=== PATIENT | male | born 1970 | race Caucasian/White ===

== ENCOUNTER 2017-08-20 17:03 | Emergency (ER) | payer BC ==
[2017-08-20 18:16] VITALS: BP 128/89
--- NOTE | 2017-08-20 18:20 | UC ---
UC General HPI - HPI Summary HPI Summary: pt is c/o sinus congestion and now yellow-green drainage for at least 7 days. he has some cough as well but no sob or fever. he has tx with mucinex and herbs with no relief. he has had similar s/s's and this is c/w a sinus infection. his BS is elevated with this illness as well. - History of Current Complaint Stated Complaint: SINUS PRESSURE, COUGH Time Seen by Provider: 08/20/17 18:08 Hx Obtained From: Patient Onset/Duration: Gradual Onset Timing: Constant Pain Intensity: 0 Associated Signs & Symptoms: Positive: Cough Similar Episode/Dx as: sinusitis - Allergy/Home Medications Allergies/Adverse Reactions: Allergies Allergy/AdvReac Type Severity Reaction Status Date / Time byetta Allergy Intermediate See Comment Uncoded 08/20/17 18:16 PMH/Surg Hx/FS Hx/Imm Hx Endocrine History: Diabetes, Dyslipidemia GI/ History: Gastroesophageal Reflux - Surgical History Surgical History: None - Social History Occupation: Employed Full-time Lives: With Family Alcohol Use: Rare Substance Use Type: None Smoking Status (MU): Never Smoked Tobacco - Immunization History Vaccination Up to Date: Yes Review of Systems Constitutional: Negative Skin: Negative Eyes: Negative ENT: Nasal Discharge, Sinus Congestion Respiratory: Cough Cardiovascular: Negative Gastrointestinal: Negative Genitourinary: Negative Motor: Negative Neurovascular: Negative Musculoskeletal: Negative Neurological: Negative Psychological: Negative All Other Systems Reviewed And Are Negative: Yes Physical Exam Triage Information Reviewed: Yes Appearance: Well-Appearing Vital Signs: Initial Vital Signs Temp 98.4 F 08/20/17 18:07 Pulse 82 08/20/17 18:07 Resp 16 08/20/17 18:07 BP 128/89 08/20/17 18:07 Pulse Ox 98 08/20/17 18:07 Vital Signs Reviewed: Yes Eyes: Positive: Conjunctiva Clear ENT: Positive: Pharynx normal, Nasal congestion, Nasal drainage - yellow, TMs normal Neck: Positive: Supple, Nontender, No Lymphadenopathy Respiratory: Positive: Lungs clear, Normal breath sounds Cardiovascular: Positive: RRR, No Murmur Abdomen Description: Positive: Nontender, No Organomegaly, Soft Bowel Sounds: Positive: Present Musculoskeletal: Positive: ROM Intact Neurological: Positive: Alert Psychological: Positive: Age Appropriate Behavior Skin Exam: Normal Course/Dx - Course Course Of Treatment: non toxic but ill x 1 week or more and worsening s/s's plus NIDDM with elevated BS due to this illness thus will tx with augmentin - Differential Dx - Multi-Symptom Provider Diagnoses: sinusitis Discharge - Discharge Plan Condition: Stable Disposition: HOME Prescriptions: Amoxicillin/Clavulanate TAB* [Augmentin TAB 875*] 875 mg PO BID #20 tab Patient Education Materials: Sinusitis (ED) Forms: *Work Release Referrals: Breann Deras PA [Primary Care Provider] - 5 Days
[2017-08-20] MEDS ORDERED: Amoxicillin/Clavulanate TAB* 875 MG PO ONE (18:23)
== END 2017-08-20 18:36 | disposition home or self-care (01) ==
LOC: UCCORT 17:03
DX: J32.9 Chronic sinusitis, unspecified (principal); Z88.8 Allergy status to other drugs, medicaments and biological substances; E11.9 Type 2 diabetes mellitus without complications
CPT/HCPCS: 99212; A9270-GY; G0463

== ENCOUNTER 2017-11-30 17:34 | Emergency (ER) | payer SELFPAY ==
[2017-11-30 18:02] VITALS: BP 144/92
[2017-11-30] MEDS ORDERED: Tetan/Diph/Pertus SYR(Tdap)* 0.5 ML SYR(BOOSTRIX) use SYR IM ONE (18:17)
--- NOTE | 2017-11-30 18:33 | UC ---
Josh Benito Elizabeth, scribed for Natasha Sampson MD on 11/30/17 at 1808 . Bite Injury/Animal HPI - HPI Summary HPI Summary: This patient is a 47 year old M presenting to [facility] with a chief complaint of dog bite on his abdomen since 15:30. The patient reports that he works as a mail sorting supervisor and a [place]oth[place] Trotter on his route attempted to pull him out of his vehicle by his abdomen. The patient reports that the dog who bit him is up to date with its rabies vaccinations and the scruff worker showed him proof. The patient rates the pain 1/10 in severity. Symptoms aggravated by nothing. Symptoms alleviated by antibiotic ointment. No analgeia taken. Patient reports burning immediately after being bitten but notes that it has gone away since he applied the antibiotic ointment. The patient has type II diabetes and takes Metformin and Levemir . He reports that he has checked his sugars since the incident and that they are normal. Last Tdap 1999 Pt's medications reviewed this visit - History of Current Complaint Stated Complaint: DOG BITE Time Seen by Provider: 11/30/17 17:47 Hx Obtained From: Patient Severity Currently: Mild Severity Initially: Mild Pain Intensity: 1 Pain Scale Used: 0-10 Numeric Onset/Duration: Sudden Onset, Still Present Type of Bite: Pet - dog Has Animal Been Immunized?: Yes Aggravating Factor(s): Nothing Alleviating Factor(s): Other - antibiotic ointment Associated Signs And Symptoms: Positive: Negative Hx of Bite: Unprovoked - Allergies/Home Medications Allergies/Adverse Reactions: Allergies Allergy/AdvReac Type Severity Reaction Status Date / Time byetta Allergy Intermediate See Comment Uncoded 11/30/17 18:02 Home Medications: Home Medications Insulin Detemir (NF) [Levemir (NF)] 2 units SUBCUT BEDTIME 11/30/17 [History Confirmed 11/30/17] PMH/Surg Hx/FS Hx/Imm Hx Endocrine History: Diabetes - type II - Surgical History Surgical History: None - Family History Known Family History: Positive: None - patient denies FHx - Social History Occupation: Employed Full-time Lives: With Family Alcohol Use: Rare Substance Use Type: None Smoking Status (MU): Never Smoked Tobacco - Immunization History Most Recent Tetanus Shot: needs Vaccination Up to Date: Yes Review of Systems ENT: Negative - negative epistaxis Gastrointestinal: Abdominal Pain - dog bite on right side Neurological: Negative - negative headache All Other Systems Reviewed And Are Negative: Yes Physical Exam - Summary Physical Exam Summary: Vital Signs Reviewed: Yes A+Ox3, no distress Eyes: Conjunctiva Clear ENT: Hearing grossly normal neck: supple Respiratory: Positive: No respiratory distress, No accessory muscle use Cardiovascular: skin color reflect adequate perfusion abd: soft, NT/ND + BS No guarding, no rebound Musculoskeletal Exam: CONDE x 4 without difficulty Neurological: Positive: Alert, ambulatory without difficulty Psychological: Positive: Normal Response To Family Skin: Positive: no rash, no ecchymosis Pt wit 2 parallel nonsuturable abraisons to right mid abd just inferior to umbilicus No bleeding no drainage no puncture Triage Information Reviewed: Yes Vital Signs: Initial Vital Signs Temp 99.1 F 11/30/17 17:55 Pulse 80 11/30/17 17:55 Resp 20 11/30/17 17:55 BP 144/92 11/30/17 17:55 Pulse Ox 96 11/30/17 17:55 Bite Injury Course/Dx - Course Course Of Treatment: Pt with dog bite to right abdomen - occurred at work . No bleeding Pt is a diabetic. Wound without puncture, superficial. Will give tdap. Reviewed s/s infection. wound care. bite form completed. Augmentin. return precautions. pt declined analgesia. pt comfort and in agreement with plan. workers comp forms signed - Differential Dx/Diagnosis Provider Diagnoses: dog bite. tetanus Discharge - Sign-Out/Discharge Documenting (check all that apply): Discharge/Admit/Transfer - Discharge Plan Condition: Stable Disposition: HOME Discharge Disposition Comment: discharge home Prescriptions: Amoxicillin/Clavulanate TAB* [Augmentin TAB 875*] 875 mg PO BID #14 tab Patient Education Materials: Diphtheria/Pertussis/Tetanus Vaccine (By injection ), Animal Bite (ED) Referrals: Breann Deras PA [Primary Care Provider] - Additional Instructions: - Keep area clean and dry. Okay to wash with warm, soapy water. After washing, pat dry -Cover your wound with a thin layer of antibiotic ointment such as neosporin or polysporin. Cover with a bandaid as needed -Monitor your wound for signs of infection - reddness, red streaking, odor, pus - return here of call your doctor with questions or concerns - Take antibiotics as prescribed until gone - Okay to alternate ibuprofen (Advil, Motrin)600mg and tylenol 1000mg every 3hours for pain. Take with food Do not take for more than 4-5 days - You will likely develop bruising around the site - this is normal and non concerning - your arm will be sore tomorrow from the tetanus - okay to take pain medication as prescribed - Contact your doctor or return with questions or concerns - Billing Disposition and Condition Condition: STABLE Disposition: Home The documentation as recorded by the Josh hung Elizabeth accurately reflects the service I personally performed and the decisions made by me, Natasha Sampson MD.
== END 2017-11-30 18:40 | disposition home or self-care (01) ==
LOC: UCEAST 17:34
DX: S30.871A Other superficial bite of abdominal wall, initial encounter (principal); W54.0XXA Bitten by dog, initial encounter; Y93.9 Activity, unspecified; Y99.9 Unspecified external cause status
CPT/HCPCS: 90471; 90715; 99211; G0463

== ENCOUNTER 2018-04-18 16:23 | Emergency (ER) | payer OTHER ==
[2018-04-18 16:46] VITALS: BP 153/96
--- NOTE | 2018-04-18 17:11 | ED ---
Adult Trauma - HPI Summary HPI Summary: About 2:00 this afternoon Mr. Castro slipped on some ice and fell onto his left side. About an hour and a half later he began to stiffen up and complained of pain in his neck and low back. He denies any paresthesias or weakness or headache injury. - History of Current Complaint Chief Complaint: UCBackPain Stated Complaint: BACK INJURY Time Seen by Provider: 04/18/18 16:57 Hx Obtained From: Patient Mechanism of Injury: Fall Ambulatory at the Scene: Yes Loss of Consciousness: no loss of consciousness Force: Low Onset/Duration: Started Hours Ago Onset of Pain: Hours Onset Severity: Mild Current Severity: Moderate Pain Intensity: 2 Location: Neck, Back Aggravating Factor(s): Movement Alleviating Factor(s): Rest Associated Signs & Symptoms: Positive: Negative - Allergy/Home Medications Allergies/Adverse Reactions: Allergies Allergy/AdvReac Type Severity Reaction Status Date / Time byetta Allergy Intermediate See Comment Uncoded 04/18/18 16:46 PMH/Surg Hx/FS Hx/Imm Hx Endocrine/Hematology History: Reports: Hx Diabetes - type II Denies: Hx Thyroid Disease Cardiovascular History: Denies: Hx Hypertension Respiratory History: Denies: Hx Asthma Infectious Disease History: No Infectious Disease History: Denies: History Other Infectious Disease, Traveled Outside the [place] in Last 30 Days - Family History Known Family History: Positive: None - patient denies FHx - Social History Alcohol Use: Rare Substance Use Type: Reports: None Smoking Status (MU): Never Smoked Tobacco Review of Systems Constitutional: Negative Eyes: Negative ENT: Negative Cardiovascular: Negative Respiratory: Negative Gastrointestinal: Negative Genitourinary: Negative Musculoskeletal: Other - see HPI Skin: Negative Neurological: Negative Psychological: Normal All Other Systems Reviewed And Are Negative: Yes Physical Exam - Summary Physical Exam Summary: Mr. Castro was nontoxic in appearance with stable vital signs Triage Information Reviewed: Yes Vital Signs On Initial Exam: Initial Vitals Temp Pulse Resp BP Pulse Ox 98 F 85 16 153/96 100 04/18/18 16:39 04/18/18 16:39 04/18/18 16:39 04/18/18 16:39 04/18/18 16:39 Vital Signs Reviewed: Yes Appearance: Positive: Well-Appearing, Pain Distress - Mildly Skin: Positive: Warm, Skin Color Reflects Adequate Perfusion, Dry Eyes: Positive: Normal ENT: Positive: Normal ENT inspection Neck: Positive: Supple, Tenderness @ - paracervicle around C5 Respiratory/Lung Sounds: Positive: Clear to Auscultation Cardiovascular: Positive: Normal Abdomen Description: Positive: Nontender Musculoskeletal: Positive: Abnormal @ - right para lumbar tenderness Neurological: Positive: Normal Psychiatric: Positive: Normal Diagnostics - Vital Signs Vital Signs Temp Pulse Resp BP Pulse Ox 04/18/18 16:39 98 F 85 16 153/96 100 - Laboratory Lab Statement: Any lab studies that have been ordered have been reviewed, and results considered in the medical decision making process. Adult Trauma Course/Dx - Course Course Of Treatment: Mr. Castro wrenched his back and neck falling today. He didn 't have any pain for about 90 minutes after the event and this has ruled out fractures or significant disc injury. - Diagnoses Provider Diagnoses: Cervical strain, acute, Low back strain Discharge - Sign-Out/Discharge Documenting (check all that apply): Patient Departure All imaging exams completed and their final reports reviewed: Yes - Discharge Plan Condition: Stable Disposition: HOME Patient Education Materials: Cervical Strain (ED), Low Back Strain (ED), Ibuprofen (By mouth) Referrals: Breann Deras PA [Primary Care Provider] - - Billing Disposition and Condition Condition: STABLE Disposition: Home
== END 2018-04-18 17:25 | disposition home or self-care (01) ==
LOC: UCEAST 16:23
DX: S16.1XXA Strain of muscle, fascia and tendon at neck level, initial encounter (principal); S39.012A Strain of muscle, fascia and tendon of lower back, initial encounter; W00.0XXA Fall on same level due to ice and snow, initial encounter; Y92.9 Unspecified place or not applicable; Z88.8 Allergy status to other drugs, medicaments and biological substances
CPT/HCPCS: 99212; G0463